=== PATIENT | male | born 1985 | race Two or more races ===

== ENCOUNTER 2017-07-03 08:21 | Emergency (ER) | payer OTHER ==
[~2017-07-03] VITALS: Ht 177.8 cm; Wt 84.0 kg
[2017-07-03 08:41] VITALS: BP 117/77
--- NOTE | 2017-07-03 08:45 | NUR ---
PT AMBULATED TO BED 11
[2017-07-03] MEDS ORDERED: TETRACAINE HCL/PF 0.5% OPTH 4 ML BTL OP ONE (08:50)
[2017-07-03] MEDS ORDERED: FLUORESCEIN OPTH STRIP 0.6 MG OP ONE (08:50)
--- NOTE | 2017-07-03 08:50 | NUR ---
PT. CAME IN TO ED W/ C/O R EYE PAIN . PT. STATES " ON SATURDAY I WOKE UP AND MY R EYE WAS A LITTLE RED, BUT I STILL HAD TO GO TO WORK SO I PUT ON MY CONTACTS AND WENT TO WORK, WELL IT HAS GOTTEN WORSE AND NOW IT HURTS IT HAS GOTTEN EVEN MORE RED AND IT KEEPS CRYING". PT. STATES HE HAS 5/10 PAIN IN R EYE IT IS RED WITH THIN DISCHARGE THAT IS WATERY AND IS DESCRIBED DISCOMFORT AND STINGING". PT. AAOX4, RR EVEN AND UNLABORED, DENIES CHEST PAIN,DENIES COUGH. Hans CARDONA NOTIFIED. WILL CONTINUE TO MONITOR
--- NOTE | 2017-07-03 08:55 | NUR ---
DR. SPAIN IN ROOM W/ PATIENT
[2017-07-03 09:10] VITALS: BP 117/77
--- NOTE | 2017-07-03 09:10 | NUR ---
Patient discharged with v/s stable. Written and verbal after care instructions given and explained. Patient alert, oriented and verbalized understanding of instructions. Ambulatory with steady gait. All questions addressed prior to discharge. ID band removed. Patient advised to follow up with PMD. Rx of OFLOXACIN 0.3% given. Patient educated on indication of medication including possible reaction and side effects. Opportunity to ask questions provided and answered.
== END 2017-07-03 09:10 | disposition home or self-care (01) ==
LOC: MED 08:21
DX: H16.001 Unspecified corneal ulcer, right eye (principal)
CPT/HCPCS: 99283